=== PATIENT | female | born 1955 | race African-American/Black ===

== ENCOUNTER 2016-11-15 05:50 | Day surgery (SDC) | payer MEDICARE, OTHER ==
[~2016-11-15] VITALS: Ht 160 cm; Wt 68.0 kg
[~2016-11-15 05:50] MED LIST: CHOL100046 PO; LABE100T PO; LIP40 PO; PRIM50TA31 PO; ROSU20TA PO
[2016-11-15] MEDS: LACTATED RINGERS 1,000 ML IV SCH ×2 (06:50→07:02)
[2016-11-15] MEDS ORDERED: SKIN ADHESIVE 0.7 GM EA TOP ONE (07:04)
[2016-11-15] MEDS ORDERED: BUPIVACAINE HCL/EPINEPHRINE 0.5%/0.0005 30ML ONE (07:05)
[2016-11-15] MEDS ORDERED: BUPIVACAINE HCL 0.5% (5MG/ML) 50ML ONE (07:06)
[2016-11-15] MEDS ORDERED: MIDAZOLAM HCL 2 MG/2 ML VIAL ONE (07:42)
[2016-11-15] MEDS ORDERED: FENTANYL CITRATE/PF 50MCG/ML 2ML VIAL ONE (07:42)
[2016-11-15] MEDS ORDERED: FOLI-43 PO (07:54)
[2016-11-15] MEDS ORDERED: CLOP75TA33 PO (07:56)
[2016-11-15] MEDS ORDERED: VITAMIN D2 PO (07:58)
[2016-11-15] MEDS ORDERED: TRIA1TAB5 PO (07:58)
[2016-11-15] MEDS ORDERED: MEPERIDINE HCL/PF 25MG/ML CPJ IV PRN (08:30)
[2016-11-15] MEDS ORDERED: LABETALOL HCL 20MG/4ML CARPUJECT IV PRN (08:30)
[2016-11-15] MEDS ORDERED: ONDANSETRON HCL 4MG/2ML VIAL IV PRN (08:30)
[2016-11-15] MEDS ORDERED: HYDROMORPHONE HCL/PF 2MG/ML CPJ IV PRN (08:30)
[2016-11-15] MEDS ORDERED: PROPOFOL 200MG/20ML VIAL IV ONE (09:38)
[2016-11-15] MEDS ORDERED: CEFAZOLIN SODIUM 1000MG/VIAL ONE (09:38)
[2016-11-15] MEDS ORDERED: SODIUM CHLORIDE 0.9% 10ML VIAL ONE (09:38)
[2016-11-15] MEDS ORDERED: LIDOCAINE HCL 1% 20ML VIAL (Pyxis) INJ ONE (09:38)
== END 2016-11-15 10:15 | disposition home or self-care (01) ==
LOC: OR 05:50
PROVIDERS: ATTEND Surgery
DX: N60.02 Solitary cyst of left breast (principal)
CPT/HCPCS: 10060; 88305; A4216; J0690; J2250; J3010; J3490; J7120; J0171; J2704

== ENCOUNTER 2017-08-03 07:20 | Day surgery (SDC) | payer MEDICARE, OTHER ==
[~2017-08-03] VITALS: Ht 160 cm; Wt 63.5 kg
[~2017-08-03 07:20] MED LIST changes: -CHOL100046 PO; +CLOP75TA33 PO; +FOLI-43 PO; +LACTATED RINGERS 1,000 ML IV SCH; -ROSU20TA PO; +TRIA1TAB5 PO; +VITAMIN D2 PO
[2017-08-03 09:24] LABS: CLARITY URINE CLOUDY (CLEAR); COLOR URINE YELLOW (YELLOW); KETONES URINE NEGATIVE (NEGATIVE); LEUKOCYTE ESTERASE URINE 1+ (NEGATIVE); NITRITE URINE NEGATIVE (NEGATIVE); OCCULT BLOOD URINE NEGATIVE (NEGATIVE); PH URINE 6.5 (4.5-8.0); PROTEIN URINE NEGATIVE (NEGATIVE); UROBILINOGEN URINE 0.2 E.U./dL (0.2-1.0)
[2017-08-03] MEDS ORDERED: SKIN ADHESIVE 0.7 GM EA TOP ONE (10:39)
[2017-08-03] MEDS ORDERED: BUPIVACAINE HCL 0.5% (5MG/ML) 50ML ONE (10:39)
[2017-08-03] MEDS ORDERED: BUPIVACAINE HCL/PF 0.5% (5MG/ML) 10ML ONE (10:45)
[2017-08-03] MEDS ORDERED: ROCURONIUM BROMIDE 10MG/ML VIAL 5ML IV ONE (10:47)
[2017-08-03] MEDS ORDERED: LIDOCAINE HCL/PF 1% 10 MG/ML 5ML VIAL ONE (10:47)
[2017-08-03] MEDS ORDERED: FENTANYL CITRATE/PF 50MCG/ML 2ML VIAL ONE (10:47)
[2017-08-03] MEDS ORDERED: SUCCINYLCHOLINE CHLORIDE 200MG/10ML VIAL IV ONE (10:47)
[2017-08-03] MEDS ORDERED: PROPOFOL 200MG/20ML VIAL IV ONE (10:47)
[2017-08-03] MEDS ORDERED: ONDANSETRON HCL 4MG/2ML VIAL ONE (10:47)
[2017-08-03] MEDS ORDERED: NEOSTIGMINE METHYLSULFATE 1MG/ML 10 ML VIAL ONE (10:47)
[2017-08-03] MEDS ORDERED: GLYCOPYRROLATE 0.2 MG/ML 2ML VIAL ONE (10:47)
[2017-08-03] MEDS ORDERED: CEFAZOLIN SODIUM 1000MG/VIAL ONE (10:47)
[2017-08-03] MEDS ORDERED: MIDAZOLAM HCL 2 MG/2 ML VIAL ONE (10:47)
[2017-08-03] MEDS ORDERED: METOCLOPRAMIDE HCL 10MG/2ML VIAL ONE (10:47)
[2017-08-03] MEDS ORDERED: SODIUM CHLORIDE 0.9% 1,000 ML IV ONE (11:47)
[2017-08-03] MEDS ORDERED: MEPERIDINE HCL/PF 25MG/ML CPJ IV PRN (12:00)
[2017-08-03] MEDS ORDERED: HYDROMORPHONE HCL/PF 2MG/ML CPJ IV PRN (12:00)
[2017-08-03] MEDS ORDERED: ONDANSETRON HCL 4MG/2ML VIAL IV PRN (12:00)
== END 2017-08-03 12:50 | disposition home or self-care (01) ==
LOC: OR 07:20
PROVIDERS: ATTEND Surgery
DX: L72.0 Epidermal cyst (principal); M79.89 Other specified soft tissue disorders; I10 Essential (primary) hypertension; Z79.899 Other long term (current) drug therapy
CPT/HCPCS: 19120; 81003; 87077; 87086; 87186; 88305; 93005; G0168; J0330; J0690; J2250; J2405; J2710; J2765; J3010; J3490; J7120; J2704

== ENCOUNTER → 2024-01-02 | Day surgery (SDC) | payer MEDICARE, OTHER ==
[~2024-01-02] VITALS: Ht 157.5 cm; Wt 74.8 kg
[~2024-01-02] MED LIST changes: +BALANCED SALT IRRIG SOLN 15ML ONE; +BALANCED SALT IRRIG SOLN COMB1 500ML OP NR; +CALC-977 PO; +CYCLOPENTOLATE HCL 1% OPHTH DROPS 2ML RIGHTEYE NR; +DIAZ5TAB PO; +FENTANYL CITRATE/PF 50MCG/ML 2ML VIAL ONE; +FERR325T6 PO; +HYALURONATE SODIUM 10MG/ML 0.85ML SYRINGE IO ONE; +HYDROMORPHONE HCL/PF 1MG/ML INJ IV PRN; -LABE100T PO; +LABE100T9 PO; +LABETALOL 5MG/ML 4ML INJ IV PRN; -LACTATED RINGERS 1,000 ML IV SCH; +MEPERIDINE HCL/PF 25MG/ML CPJ IV PRN; +MIDAZOLAM HCL 2 MG/2 ML VIAL ONE; +ONDANSETRON HCL 4MG/2ML INJ IV PRN; +PHENYLEPHRINE HCL 10% OPHTH DROPS 5ML RIGHTEYE NR; -PRIM50TA31 PO; +PRIM50TA5 PO; +T3 PO; +TROPICAMIDE 1% OPHTH DROPS 15ML RIGHTEYE NR; +TRYPAN BLUE 0.5 ML DISP.SYRIN IO ONE; -VITAMIN D2 PO
[2024-01-02] MEDS: LACTATED RINGERS 1,000 ML IV SCH (08:43)
== END | disposition home or self-care (01) ==
LOC: OR 07:08
PROVIDERS: ATTEND Ophthalmology
DX: H25.21 Age-related cataract, morgagnian type, right eye (principal); H25.041 Posterior subcapsular polar age-related cataract, right eye; H40.003 Preglaucoma, unspecified, bilateral; H04.123 Dry eye syndrome of bilateral lacrimal glands; I12.9 Hypertensive chronic kidney disease with stage 1 through stage 4 chronic kidney disease, or unspecified chronic kidney disease; N18.9 Chronic kidney disease, unspecified; E78.5 Hyperlipidemia, unspecified; Z87.891 Personal history of nicotine dependence; Z86.73 Personal history of transient ischemic attack (TIA), and cerebral infarction without residual deficits; Z79.899 Other long term (current) drug therapy; Z98.890 Other specified postprocedural states
CPT/HCPCS: 66982; J3010; J3490 ×2; J2250; V2632; Q9957

== ENCOUNTER → 2024-02-27 | Day surgery (SDC) | payer MEDICARE, OTHER ==
[~2024-02-27] VITALS: Ht 160 cm; Wt 77.1 kg
[~2024-02-27] MED LIST changes: +CYCLOPENTOLATE HCL 1% OPHTH DROPS 2ML LEFTEYE SCH; -CYCLOPENTOLATE HCL 1% OPHTH DROPS 2ML RIGHTEYE NR; +PHENYLEPHRINE HCL 10% OPHTH DROPS 5ML LEFTEYE SCH; -PHENYLEPHRINE HCL 10% OPHTH DROPS 5ML RIGHTEYE NR; +TROPICAMIDE 1% OPHTH DROPS 15ML LEFTEYE SCH; -TROPICAMIDE 1% OPHTH DROPS 15ML RIGHTEYE NR
[2024-02-27 08:09] LABS: BASOPHILS % 0.7 % (0.0-2.0); DIFFERENTIAL COMMENT 0; EOSINOPHILS % 4.4 % (0.0-5.0); HEMATOCRIT. 39.1 % (36.0-48.0); HEMOGLOBIN. 12.3 g/dL (12.0-16.0); LYMPHOCYTES % 21.1 % (20.0-50.0); MEAN CORPUSCULAR HEMOGLOBIN 30.8 pg (28.0-32.0); MEAN CORPUSCULAR HGB CONC 31.4 g/dL (31.0-37.0); MEAN CORPUSCULAR VOLUME 98.2 fL (81.0-99.0); MEAN PLATELET VOLUME 10.8 fl (7.4-10.4); NEUTROPHILS % 67.8 % (40.0-76.0); PLATELET 174 x1000/uL (130-400); RED BLOOD CELL COUNT 3.98 mill/uL (4.2-5.4); RED CELL DISTRIBUTION WIDTH 13.7 % (11.6-14.6); WHITE BLOOD COUNT 6.2 x1000/uL (4.5-11.0)
[2024-02-27 08:17] LABS: CHLORIDE 108 mEq/L (98-107); SODIUM 140 mEq/L (136-145)
[2024-02-27 08:18] LABS: CARBON DIOXIDE 27 mEq/L (21-32)
[2024-02-27 08:19] LABS: CALCIUM 9.1 mg/dL (8.7-10.4)
[2024-02-27 08:23] LABS: CREATININE 1.1 mg/dL (0.6-1.0); GLUCOSE 102 mg/dL (70-105); UREA NITROGEN BLOOD 19 mg/dL (9-23)
[2024-02-27] MEDS: LACTATED RINGERS 1,000 ML IV SCH (08:57)
== END | disposition home or self-care (01) ==
LOC: OR 07:14
PROVIDERS: ATTEND Ophthalmology
DX: H25.89 Other age-related cataract (principal); I25.2 Old myocardial infarction; I12.9 Hypertensive chronic kidney disease with stage 1 through stage 4 chronic kidney disease, or unspecified chronic kidney disease; N18.9 Chronic kidney disease, unspecified; E78.5 Hyperlipidemia, unspecified; M19.90 Unspecified osteoarthritis, unspecified site; Z86.73 Personal history of transient ischemic attack (TIA), and cerebral infarction without residual deficits; Z79.899 Other long term (current) drug therapy; Z98.890 Other specified postprocedural states
CPT/HCPCS: 66984; 80048; 85025; 36415; 93005; V2632; J3010; J2250; J3490; Q9957